=== PATIENT | female | born 1995 | race Caucasian/White ===

== ENCOUNTER 2017-09-30 13:55 | Emergency (ER) | payer BC ==
[~2017-09-30] VITALS: Ht 165.1 cm; Wt 60.9 kg
[2017-09-30 14:01] VITALS: TEMP 36.5; Ht 165.1 cm; Wt 60.9 kg
[2017-09-30] MEDS ORDERED: ACETAMINOPHEN 325 MG TAB PO STA (14:28)
[2017-09-30] MEDS ORDERED: ONDANSETRON 4MG OD TAB PO STA (14:28)
--- NOTE | 2017-09-30 14:34 | EMERGENCY ROOM VISIT NOTE ---
History First contact with patient: 14:23 Chief Complaint: HEAD INJURY (MINOR) Stated Complaint: HIT BACK OF HEAD History of Present Illness The patient is a 22 year old female who presents to the Emergency Room with complaints of head injury. The patient states that she was drinking alcohol last night and fell backwards and struck her head on a grassy surface. The patient denies any loss of consciousness, dizziness or visual changes. The patient states that she has a headache at the back of her head today and feels a little nauseous. The patient denies any neck pain. The patient denies any abdominal pain. She denies any vomiting. She took Advil at 9:00 for the headache. Review of Systems 10 system review was performed and was negative unless stated otherwise history of present illness. Past Medical/Surgical History ulnar nerve release Social History Smoking Status: Never Smoker Smokeless Tobacco Use: No Alcohol Use: occasionally Marital Status: single Housing Status: lives with roommate Occupation Status: [employer] student Physical Exam Vital Signs Date Time Temp Pulse Resp B/P (MAP) Pulse Ox O2 Delivery O2 Flow Rate FiO2 09/30/17 14:01 36.5 100 18 128/82 98 Physical Exam GENERAL: 22-year-old female appears in no acute distress. MENTAL Status: Alert and oriented 3. HEAD: Atraumatic, tenderness palpation over the left occipital region otherwise nontender. EYES: PERRLA. EOMs intact. EARS: Canals clear. TMs without hemotympanum NECK: Supple, no lymphadenopathy noted. No carotid bruits noted. LUNGS: Clear auscultation without wheezes rales or rhonchi. CARDIAC: Regular rate and rhythm without murmur. Pulses is full and equal throughout. CERVICAL SPINE: Nontender to palpation over the spinous processes in the paravertebral regions bilaterally. Full range of motion. NEURO:Cranial nerves two through 12 intact. Cerebellar function intact with [id number]. Fine motor intact with alternating finger motions. Medical Decision & Procedures ED Course The patient was evaluated. The patient was given Tylenol 650 mg by mouth for headache and Zofran 4 mg ODT for nausea. I discussed with the patient that I do not feel this time that she needs a CAT scan performed. If her symptoms should worsen she may return at that time for a CT scan. The patient is in agreement with treatment plan and was discharged home in stable condition. Medical Decision Differential diagnosis include head contusion, intracranial bleed, subarachnoid hemorrhage [place] Drug Monitoring Program Search Results: patient reviewed within database Head Trauma GCS Score: 15 Medication Reconcilliation Current Medication List: was personally reviewed by me Blood Pressure Screening Patient's blood pressure: Normal blood pressure Impression Primary Impression: Closed head injury Departure Information Dispostion Home / Self-Care Condition GOOD Referrals No Doctor, Assigned (PCP) Forms HOME CARE DOCUMENTATION FORM, IMPORTANT VISIT INFORMATION Patient Instructions ED Head Injury Closed, [facility] Additional Instructions Follow head injury handout instructions. Any problems return to the ER. If use. Any severe headache, visual changes return to ER immediately. Recommend taking Tylenol as needed for headache every 6 hours. Do not take Advil, ibuprofen, Aleve. Take Zofran as needed for associated nausea. Problem Qualifiers Primary Impression: Closed head injury Encounter type: initial encounter Qualified Codes: S09.90XA - Unspecified injury of head, initial encounter
[2017-09-30] MEDS ORDERED: ONDA4TAB10 SL (14:35)
[2017-09-30 14:47] VITALS: BP 130/76; PULSE 76; O2SAT 99
== END 2017-09-30 14:49 | disposition home or self-care (01) ==
LOC: C.EDB 13:55 → C.EDD 14:49
DX: S09.90XA Unspecified injury of head, initial encounter (principal); W01.198A Fall on same level from slipping, tripping and stumbling with subsequent striking against other object, initial encounter; R40.2412 Glasgow coma scale score 13-15, at arrival to emergency department; F10.99 Alcohol use, unspecified with unspecified alcohol-induced disorder